=== PATIENT | female | born 1985 ===

== ENCOUNTER 2024-05-15 11:14 | Emergency (ER) | payer OTHER, SELFPAY ==
[2024-05-15 11:15] VITALS: BP 135/91
[2024-05-15 12:14] VITALS: BMI 25.4
[2024-05-15] MEDS: LET TOPICAL ANESTHETIC GEL 3 ML TOPICAL (12:15)
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
== END 2024-05-15 13:01 | disposition home or self-care (01) ==
LOC: EMR 11:14
PROVIDERS: EMERGENCY PHYSICIAN Emergency Medicine
DX: S06.0XAA Concussion with loss of consciousness status unknown, initial encounter (principal); S01.01XA Laceration without foreign body of scalp, initial encounter; W22.8XXA Striking against or struck by other objects, initial encounter
CPT/HCPCS: 99284; 12001; 70450